=== PATIENT | female | born 1990 | race Caucasian/White ===

== ENCOUNTER 2017-05-14 17:41 | Inpatient (IN) | payer OTHER ==
--- NOTE | 2017-05-14 18:18 | EDPHY ---
H & P Smoking Status: Never smoked Time Seen by Provider: 05/14/17 17:58 HPI/ROS: HPI Depression, suicidal thoughts. 26-year-old female on an M1 hold comes the emergency department with [employer] police. Has a long history of depression. She is noncompliant with her psychiatric medications. She reports that she has been more depressed and feeling suicidal over the last few days. She was with her therapist. She told her therapist that she was suicidal. She told her therapist that she has knives in her kitchen was going to figure out a way to kill herself. Her therapist then called police and she was brought to the emergency department. ROS: Constitutional: No fever, no chills. No weakness. Eyes: No discharge. No changes in vision. ENT: No sore throat. No nasal congestion or rhinorrhea. Respiratory: No cough. No shortness of breath. Cardiac: No chest pain, no palpitations. Gastrointestinal: No abdominal pain, no vomiting, no diarrhea. Genitourinary: No hematuria. No dysuria or increased frequency with urination. Musculoskeletal: No back pain. No neck pain. No myalgias or arthralgias. Skin: No rashes. Neurological: No headache. No focal weakness or altered sensation. Past medical history: Depression. As above. Social history: Nonsmoker. No alcohol. Denies IV drugs or street drugs. Lives with a roommate. Here by herself. Physical Exam: General Appearance: Alert, flat affect. This patient is responding to questions appropriately and in full sentences. This patient appears well- hydrated and well-nourished. Eyes: Pupils equal and round no pallor or injection. No lid edema, erythema or injection. Respiratory: There are no retractions, lungs are clear to auscultation with good air movement bilaterally. Cardiovascular: Regular rate and rhythm. No murmur. Gastrointestinal: Abdomen is soft and nontender, no masses, bowel sounds normal. No focal tenderness at McBurney's point. No Salmon sign. Neurological: Motor sensory function is grossly intact. Cranial nerves are normal. Gait is normal. Skin: Warm and dry, no rashes. Musculoskeletal: Neck is supple and nontender. Extremities are symmetrical. All joints range without pain or impingement. Psychiatric: No agitation. No depression. Database: EKG: Imaging: Procedures: Emergency department course: Vital signs reviewed. Appropriate blood work sent. She was medically cleared from a clinical standpoint at 6:20 p.m.. Behavioral Health is aware. 7:30 p.m., patient medically cleared for behavioral health evaluation. EPS aware. 10:00 p.m., patient is awaiting behavioral health evaluation. Blood work reviewed. Serum glucose 67. Patient given a meal tray and is eating. 11:00 p.m.. The patient has been fed. She is still awaiting behavioral health evaluation. EPS is aware. Care turned over to Dr. Jamar Holly at this time. Differential Diagnosis: The differential diagnosis on this patient includes but is not limited to situational depression, major depression, suicidal ideation.. This represents a partial list of diagnoses considered. These considerations are based on history, physical exam, past history, reassessment and diagnostic testing. ( Elena Sinclair) Constitutional: Initial Vital Signs Temperature (C) 36.7 C 05/14/17 18:00 Heart Rate 84 05/14/17 18:00 Respiratory Rate 16 05/14/17 18:00 Blood Pressure 123/71 H 05/14/17 18:00 O2 Sat (%) 96 05/14/17 18:00 O2 Delivery Mode Room Air Allergies/Adverse Reactions: Penicillins Allergy (Verified 05/14/17 17:52) Home Medications: Medication Instructions Recorded Lexapro 05/14/17 Medical Decision Making ED Course/Re-evaluation: 0152AM: Patient has been accepted at [address] [place] [address] Peterson. EMTALA will be filled out. Appropriate transfer will be set up. (Jamar Holly) - Data Points Laboratory Results: Laboratory Results 05/14/17 18:31 05/14/17 18:31 05/14/17 05/14/17 05/14/17 18:31 18:31 18:31 WBC 9.35 10^3/uL 10^3/uL (3.80-9.50) RBC 5.33 10^6/uL 10^6/uL (4.18-5.33) Hgb 16.8 g/dL H g/dL (12.6-16.3) Hct 48.0 % H % (38.0-47.0) MCV 90.1 fL fL (81.5-99.8) MCH 31.5 pg pg (27.9-34.1) MCHC 35.0 g/dL g/dL (32.4-36.7) RDW 13.2 % % (11.5-15.2) Plt Count 270 10^3/uL 10^3/uL (150-400) MPV 9.9 fL fL (8.7-11.7) Neut % (Auto) 52.7 % % (39.3-74.2) Lymph % (Auto) 38.0 % % (15.0-45.0) Cache % (Auto) 5.6 % % (4.5-13.0) Eos % (Auto) 3.0 % % (0.6-7.6) Baso % (Auto) 0.6 % % (0.3-1.7) Nucleat RBC Rel Count 0.0 % % (0.0-0.2) Absolute Neuts (auto) 4.93 10^3/uL 10^3/uL (1.70-6.50) Absolute Lymphs (auto) 3.55 10^3/uL H 10^3/uL (1.00-3.00) Absolute Monos (auto) 0.52 10^3/uL 10^3/uL (0.30-0.80) Absolute Eos (auto) 0.28 10^3/uL 10^3/uL (0.03-0.40) Absolute Basos (auto) 0.06 10^3/uL 10^3/uL (0.02-0.10) Absolute Nucleated RBC 0.00 10^3/uL 10^3/uL (0-0.01) Immature Gran % 0.1 % % (0.0-1.1) Immature Gran # 0.01 10^3/uL 10^3/uL (0.00-0.10) Sodium 142 mEq/L mEq/L (134-144) Potassium 4.1 mEq/L mEq/L (3.5-5.2) Chloride 99 mEq/L mEq/L (97-110) Carbon Dioxide 24 mEq/l mEq/l (22-31) Anion Gap 19 mEq/L H mEq/L (8-16) BUN 15 mg/dL mg/dL (7-23) Creatinine 0.9 mg/dL mg/dL (0.6-1.0) Estimated GFR > 60 Glucose 67 mg/dL L mg/dL (70-100) Calcium 10.5 mg/dL H mg/dL (8.5-10.4) Beta HCG, Qual NEGATIVE Salicylates < 1.0 mg/dL L mg/dL (2.0-20.0) Urine Opiates Screen Acetaminophen < 10 mcg/mL L mcg/mL (10-30) Urine Barbiturates Ur Phencyclidine Scrn Ur Amphetamine Screen U Benzodiazepines Scrn Urine Cocaine Screen U Marijuana (THC) Screen Ethyl Alcohol < 10 mg/dL mg/dL (0-10) 05/14/17 18:00 WBC RBC Hgb Hct MCV MCH MCHC RDW Plt Count MPV Neut % (Auto) Lymph % (Auto) Cache % (Auto) Eos % (Auto) Baso % (Auto) Nucleat RBC Rel Count Absolute Neuts (auto) Absolute Lymphs (auto) Absolute Monos (auto) Absolute Eos (auto) Absolute Basos (auto) Absolute Nucleated RBC Immature Gran % Immature Gran # Sodium Potassium Chloride Carbon Dioxide Anion Gap BUN Creatinine Estimated GFR Glucose Calcium Beta HCG, Qual Salicylates Urine Opiates Screen NEGATIVE (NEGATIVE) Acetaminophen Urine Barbiturates NEGATIVE (NEGATIVE) Ur Phencyclidine Scrn NEGATIVE (NEGATIVE) Ur Amphetamine Screen NEGATIVE (NEGATIVE) U Benzodiazepines Scrn NEGATIVE (NEGATIVE) Urine Cocaine Screen NEGATIVE (NEGATIVE) U Marijuana (THC) Screen NON-NEGATIVE H (NEGATIVE) Ethyl Alcohol Departure - Departure Disposition: [facility] IP Clinical Impression: Suicidal ideation, Severe major depression Condition: Good Referrals: NONE *PRIMARY CARE P,. [Primary Care Provider] - As per Instructions
[2017-05-14 18:36] LABS: % IMMATURE GRANULYOCYTES 0.1 % (0.0-1.1); ABSOLUTE IMMATURE GRANULOCYTES 0.01 10^3/uL (0.00-0.10); ADD DIFF? NO; ADD MORPH? NO; ADD SCAN? NO; ATYPICAL LYMPHOCYTE FLAG 40 (0-99); FRAGMENT RBC FLAG 0 (0-99); HEMOGLOBIN 16.8 g/dL (12.6-16.3); LEFT SHIFT FLG 0 (0-99); LIPEMIA HEMOLYSIS FLAG 90 (0-99); MEAN CELL HEMOGLOBIN 31.5 pg (27.9-34.1); MEAN CELL VOLUME 90.1 fL (81.5-99.8); MEAN PLATELET VOLUME 9.9 fL (8.7-11.7); PLATELET CLUMPS FLAG 0 (0-99); PLATELET COUNT 270 10^3/uL (150-400); RED BLOOD CELL COUNT 5.33 10^6/uL (4.18-5.33); RED CELL DISTRIBUTION WIDTH 13.2 % (11.5-15.2)
[2017-05-14 19:05] LABS: ANION GAP 19 mEq/L (8-16); CALCIUM 10.5 mg/dL (8.5-10.4); CARBON DIOXIDE 24 mEq/l (22-31); CHLORIDE 99 mEq/L (97-110); CREATININE 0.9 mg/dL (0.6-1.0); ETHANOL SERUM < 10 mg/dL (0-10); GLOMERULAR FILTRATION RATE > 60; GLUCOSE 67 mg/dL (70-100); POTASSIUM 4.1 mEq/L (3.5-5.2); SALICYLATE < 1.0 mg/dL (2.0-20.0); SODIUM 142 mEq/L (134-144)
[2017-05-15] MEDS ORDERED: NICOTINE POLACRILEX 2 MG GUM B PRN (06:18)
[2017-05-15] MEDS ORDERED: ACETAMINOPHEN 325 MG TAB PO PRN (06:18)
[2017-05-15] MEDS ORDERED: MAG HYDROX/AL HYDROX/SIMETH 30 ML UDCUP PO PRN (06:18)
[2017-05-15] MEDS ORDERED: MAGNESIUM HYDROXIDE 30 ML UDCUP PO PRN (06:18)
[2017-05-15] MEDS ORDERED: LORazepam 0.5 MG TAB PO PRN (06:18)
[2017-05-15] MEDS ORDERED: OLANZapine 5 MG TAB PO PRN (06:20)
[2017-05-15] MEDS ORDERED: MELATONIN 3 MG TAB PO PRN (06:20)
[2017-05-15] MEDS: LITHIUM CARBONATE 300 MG CAP PO SCH (12:28)
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
--- NOTE | 2017-05-15 13:45 | BCON ---
[f rep st] BEHAVIORAL HEALTH CONSULTATION INTERNAL MEDICINE CONSULTATION DATE OF CONSULTATION: 05/15/2017 REFERRING PHYSICIAN: Dr. Peterson REASON FOR REFERRAL: Medical clearance for inpatient behavioral health stay. HISTORY OF PRESENT ILLNESS: This patient was sent to the emergency department [facility]. She had been increasingly depressed and was feeling suicidal. She had been noncompliant with her psychiatric medications. She informed her therapist that she was suicidal and had knives in her kitchen, which she was planning to use to commit suicide. She was evaluated by the mental health team and admitted for further psychiatric evaluation. She currently is without any acute medical complaints. PAST MEDICAL HISTORY: She denies any history of medical illnesses or surgeries. MEDICATIONS: She was prescribed escitalopram, but had been noncompliant. ALLERGIES: There is an allergy listed to penicillin. SOCIAL HISTORY: She is a student at the [employer]. She is not a tobacco smoker. She uses alcohol socially, and she is a regular frequent marijuana user. FAMILY HISTORY: Noncontributory. REVIEW OF SYSTEMS: Other than her emotional state, a 10-point review of systems was conducted and was negative. In particular, she reports her appetite is improved since has stopped smoking marijuana. She denies nausea, vomiting, constipation, or diarrhea. PHYSICAL EXAMINATION: VITAL SIGNS: Blood pressure is 109/75, heart rate is 62 , respiratory rate is 14, oxygen saturation is 98% on room air. Temperature is 36.5 degrees centigrade. Her weight is 58 kg for a body mass index of 22.7. GENERAL: This is a well-nourished, well-developed woman, cooperative, and in no acute distress. HEENT: Extraocular movements are intact. Mucous membranes are moist. Dentition is in good condition. NECK: Supple. HEART: Regular rate and rhythm with no murmurs, rubs, or gallops. LUNGS: Clear to auscultation bilaterally. ABDOMEN: Benign. EXTREMITIES: There is no cyanosis , clubbing, or edema. NEUROLOGIC: She is alert and oriented x3. She has a flat affect and appears sad. Cranial nerves 2-12 are grossly intact. There is no focal weakness. Sensation is intact to light touch. LABORATORY DATA: Drawn in the emergency department: CBC showed a mildly elevated hemoglobin and hematocrit at 16.8 and 48. Otherwise, CBC was all within normal limits. There was a slight elevation of her absolute lymphocytes. Serum chemistry revealed an anion gap of 19, with the upper limit of normal being 16. Glucose was slightly low at 67. Calcium was slightly high at 10.5. Otherwise, renal function and electrolytes were within normal limits. TSH was normal at 0.748. Beta hCG was negative for . Toxicology screen in the serum was negative for salicylates, acetaminophen, or ethyl alcohol and in the urine was non-negative for marijuana but otherwise negative for substances of abuse. ASSESSMENT AND RECOMMENDATIONS: 1. Weight loss. Query whether this is due to her psychiatric state. Observe for resumption of normal oral intake as her depression is treated. 2. Marijuana abuse/dependence. Advised cessation. 3. Anion gap and hemoconcentration, possibly due to recent alcohol use, though her blood alcohol level was undetectable. If she has normal fluid intake, will not pursue laboratory abnormalities further. I see no medical contraindications to this patient's continued stay on the inpatient behavioral health unit or to any psychiatric medications or procedures. Thank you very much for including me in the care of this patient, and please do not hesitate to contact me or the hospitalist service should there be need for further medical evaluation. /[id number]/MODL MTDD
[2017-05-15] MEDS: LITHIUM CARBONATE 600 MG CAP PO SCH (19:27)
[2017-05-16] MEDS: LITHIUM CARBONATE 300 MG CAP PO SCH (09:01)
[2017-05-16] MEDS: QUEtiapine FUMARATE 25 MG TAB PO PRN ×2 (11:23→11:38)
--- NOTE | 2017-05-16 11:23 | SOAPPROG ---
SOAP Progress Note Assessment/Plan: Assessment: Bipolar Disorder type II depressed Cannabis related psychotic disorder Cannabis Use Disorder - severe Alcohol Use Disorder - mild Personality Disorder - avoidant/borderline traits R/O PTSD Patient admitted on M-1 hold from [facility] for suicidal ideation with plan to stab herself, concurrent with daily cannabis abuse, episodic alcohol abuse, and low level psychotic symptoms. Patient appears regressed and anxious with child-like affect and vague explanation of symptoms after another patient on unit was loud and disruptive. Patient has been calm and quiet on unit but endorses continued depressive and anxiety symptoms and feelings of hopelessness but denies plan/intent to harm self if discharged. Reduced AH/VH since admission likely related to sobriety from cannabis. Patients dysphoric/anxious affect has been unstable/inconsistent based on observation on unit. Plan: Continue [place] 300mg QAM and 600mg QHS Education about bipolar disorder and dangers of cannabis Monitor behavior and symptoms on unit Offer Seroquel 25mg PRN anxiety or paranoia - patient refused dose after meeting with Rhea Suicide precautions Discussed plan to follow up at [facility], [facility] in [place] after discharge 05/16/17 11:33 Subjective: "I don't know" Patient unwilling or unable to explain why she is sitting in the corner on the floor. Earlier was assembling an puzzle in group group, patient retreated to room after another patient was yelling and disruptive. Endorses feeling anxious and scared. Denies VH but later reports 'the price are moving.' Denies AH. Reports continuing to feel sad and hopeless but denies SI. Reports tolerating lithium but 'it feels heavy.' Denies any somatic complaints. Reports if she was not in hospital she would return to apartment with roommate and spend time with (who reportedly completed DV arrest requirements). Objective: Vital Signs Temp Pulse Resp BP Pulse Ox 36.8 C 77 14 120/56 L 97 05/16/17 06:00 05/16/17 06:00 05/16/17 06:00 05/16/17 06:00 05/16/17 06:00 ALert female. Initially sitting in corner on the floor. Speech few words. Thoughts briefly organized with poor detail. Denies SI or HI. Denies AH. Reports 'the price are moving.' Poor eye contact. Mood 'not good' affect dysphoric, anxious. Limited insight, questionable judgment. Child-like affect, avoidant attitude. Vague and circumstantial. Staff report patient slept 6.5 hours. In ART group made drawings of demons and crucifix. Appearing cooperative and calm and not appearing distressed, but later sitting in corner, appearing anxious. - Time Spent With Patient Time Spent With Patient: 30 minutes - Pending Discharge Pending Discharge Within 24 Hours: No Pending Discharge Within 48 Hours: No ICD10 Worksheet Patient Problems: Problems Problem Status Onset Bipolar II disorder, severe, depressed, with anxious distress Acute Severe major depression Acute Suicidal ideation Acute Unspecified personality disorder Acute
[2017-05-16] MEDS: QUEtiapine FUMARATE 25 MG TAB PO SCH ×2 (20:37→20:47)
[2017-05-16] MEDS: LITHIUM CARBONATE 600 MG CAP PO SCH (20:37)
[2017-05-17 06:46] VITALS: BP 99/69; PULSE 61; RESP 16; TEMP 97.9; O2SAT 95
[2017-05-17] MEDS: LITHIUM CARBONATE 300 MG CAP PO SCH (08:58)
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
== END 2017-05-17 14:18 | disposition home or self-care (01) | DRG 885 ==
LOC: BBEH 05-15 05:50
PROVIDERS: ADMIT Psychiatry & Neurology Behavioral Neurology & Neuropsychiatry; ATTEND Psychiatry & Neurology Behavioral Neurology & Neuropsychiatry
DX: F31.30 Bipolar disorder, current episode depressed, mild or moderate severity, unspecified (principal); F12.959 Cannabis use, unspecified with psychotic disorder, unspecified; Z72.89 Other problems related to lifestyle; F60.3 Borderline personality disorder; F60.6 Avoidant personality disorder; T43.506A Underdosing of unspecified antipsychotics and neuroleptics, initial encounter
CPT/HCPCS: 80305; G0480